=== PATIENT | female | born 1975 | race Caucasian/White ===

== ENCOUNTER 2020-05-05 19:24 | Inpatient (IN) | payer OTHER ==
[~2020-05-05] VITALS: Ht 165.1 cm; Wt 113.3 kg
[2020-05-05] MEDS ORDERED: TERBINAFINE15 GM (20:21)
[2020-05-05 21:54] LABS: BASOPHILS ABSOLUTE AUTO 0.03 K/mm3 (0.00-0.23); BASOPHILS PERCENT AUTO 0 % (0-2); EOSINOPHILS ABSOLUTE AUTO 0.16 K/mm3 (0.00-0.68); EOSINOPHILS PERCENT AUTO 2 % (0-6); Hematocrit 34.1 % (33.0-51.0); Hemoglobin 10.8 g/dL (11.5-16.0); IMMATURE GRAN ABSOLUTE AUTO 0.03 K/mm3 (0.00-0.10); IMMATURE GRAN PERCENT AUTO 0 % (0-1); LYMPHOCYTES ABSOLUTE AUTO 1.89 K/mm3 (0.84-5.20); LYMPHOCYTES PERCENT AUTO 18 % (21-46); MONOCYTES ABSOLUTE AUTO 0.41 K/mm3 (0.16-1.47); MONOCYTES PERCENT AUTO 4 % (4-13); Mean Corpuscular HGB 26.7 pg (26.0-34.0); Mean Corpuscular HGB Conc 31.7 g/dL (31.5-36.5); Mean Corpuscular Volume 84 fL (80-100); NEUTROPHILS ABSOLUTE AUTO 7.86 K/mm3 (1.96-9.15); NEUTROPHILS PERCENT AUTO 76 % (41-73); Platelet Count 101 K/mm3 (150-400); RDW Coefficient Variation 15.5 % (11.7-14.2); RDW Standard Deviation 47.6 fL (35.1-46.3); Red Blood Cell Count 4.04 M/mm3 (3.80-5.20); White Blood Cell Count 10.38 K/mm3 (4.00-11.30)
[2020-05-05 22:09] LABS: International Normalized Ratio 1.12; Prothrombin Time Results 11.9 Sec (9.7-11.5)
[2020-05-06 00:03] LABS: Source, Urine Catheter
[2020-05-06 00:11] LABS: Appearance, Urine Clear (Clear); Bilirubin, Urine Neg (Neg); Blood, Urine 5+ (Neg); Color, Urine Amber (P-Yellow); Glucose Qualitative, Urine Neg (Neg); Ketones, Urine 1+ (Neg); Leukocyte Esterase, Urine Neg (Neg); Nitrite, Urine Neg (Neg); Protein, Urine 2+ (Neg); Urobilinogen, Urine NORM (Normal)
[2020-05-06 00:17] LABS: Bacteria Mod /hpf; Mucus Mod (0-Heavy); Red Blood Cells, Urine 50-100 /hpf (0-2); Squamous Epithelial Cells Few /hpf (Few)
[2020-05-06 04:44] LABS: BASOPHILS ABSOLUTE AUTO 0.02 K/mm3 (0.00-0.23); BASOPHILS PERCENT AUTO 0 % (0-2); EOSINOPHILS ABSOLUTE AUTO 0.16 K/mm3 (0.00-0.68); EOSINOPHILS PERCENT AUTO 2 % (0-6); Hematocrit 32.2 % (33.0-51.0); Hemoglobin 10.1 g/dL (11.5-16.0); IMMATURE GRAN ABSOLUTE AUTO 0.02 K/mm3 (0.00-0.10); IMMATURE GRAN PERCENT AUTO 0 % (0-1); LYMPHOCYTES ABSOLUTE AUTO 1.23 K/mm3 (0.84-5.20); LYMPHOCYTES PERCENT AUTO 19 % (21-46); MONOCYTES ABSOLUTE AUTO 0.35 K/mm3 (0.16-1.47); MONOCYTES PERCENT AUTO 5 % (4-13); Mean Corpuscular HGB 26.4 pg (26.0-34.0); Mean Corpuscular HGB Conc 31.4 g/dL (31.5-36.5); Mean Corpuscular Volume 84 fL (80-100); Mean Platelet Volume 9.7 fL (9.1-12.4); NEUTROPHILS ABSOLUTE AUTO 4.83 K/mm3 (1.96-9.15); NEUTROPHILS PERCENT AUTO 73 % (41-73); Platelet Count 75 K/mm3 (150-400); RDW Coefficient Variation 15.5 % (11.7-14.2); RDW Standard Deviation 47.8 fL (35.1-46.3); Red Blood Cell Count 3.82 M/mm3 (3.80-5.20); White Blood Cell Count 6.61 K/mm3 (4.00-11.30)
[2020-05-06 05:00] LABS: Anion Gap 7 mmol/L (6-16); Blood Urea Nitrogen 15 mg/dL (8-24); Bun/Creatinine Ratio 22.5 (12.0-20.0); CO2, Blood 25 mmol/L (21-32); Calcium, Blood 8.4 mg/dL (8.5-10.1); Chloride, Blood 109 mmol/L (98-108); Creatinine, Blood 0.67 mg/dL (0.40-1.00); Glomerular Filtration Rate >60 (60-); Glucose, Blood 175 mg/dL (70-99); Potassium, Blood 3.5 mmol/L (3.5-5.5); Sodium, Blood 141 mmol/L (136-145)
--- NOTE | 2020-05-06 15:27 | NUR ---
TRANSFER OF CARE REPORT CALLED TO SURGICAL FLOOR RN. PT TRANSFERRED TO ROOM 209. BELONGINGS GATHERED AND SENT WITH PT. PT WAS TAKEN BY WHEELCHAIR ESCORTED BY PCT.
[2020-05-07 04:20] LABS: BASOPHILS ABSOLUTE AUTO 0.02 K/mm3 (0.00-0.23); BASOPHILS PERCENT AUTO 0 % (0-2); EOSINOPHILS ABSOLUTE AUTO 0.16 K/mm3 (0.00-0.68); EOSINOPHILS PERCENT AUTO 3 % (0-6); Hematocrit 31.6 % (33.0-51.0); Hemoglobin 9.9 g/dL (11.5-16.0); IMMATURE GRAN ABSOLUTE AUTO 0.03 K/mm3 (0.00-0.10); IMMATURE GRAN PERCENT AUTO 1 % (0-1); LYMPHOCYTES ABSOLUTE AUTO 1.04 K/mm3 (0.84-5.20); LYMPHOCYTES PERCENT AUTO 18 % (21-46); MONOCYTES ABSOLUTE AUTO 0.32 K/mm3 (0.16-1.47); MONOCYTES PERCENT AUTO 5 % (4-13); Mean Corpuscular HGB 26.7 pg (26.0-34.0); Mean Corpuscular HGB Conc 31.3 g/dL (31.5-36.5); Mean Corpuscular Volume 85 fL (80-100); Mean Platelet Volume 10.2 fL (9.1-12.4); NEUTROPHILS ABSOLUTE AUTO 4.31 K/mm3 (1.96-9.15); NEUTROPHILS PERCENT AUTO 73 % (41-73); Platelet Count 73 K/mm3 (150-400); RDW Coefficient Variation 15.5 % (11.7-14.2); RDW Standard Deviation 48.2 fL (35.1-46.3); Red Blood Cell Count 3.71 M/mm3 (3.80-5.20); White Blood Cell Count 5.88 K/mm3 (4.00-11.30)
[2020-05-07 04:43] LABS: Alanine Aminotransfer (ALT/SGP 39 U/L (12-78); Albumin, Blood 3.1 g/dL (3.4-5.0); Alk Phos 57 U/L (50-136); Anion Gap 6 mmol/L (6-16); Aspartate Aminotrans (AST/SGOT 23 U/L (12-37); Bilirubin, Total 1.8 mg/dL (0.1-1.0); Blood Urea Nitrogen 12 mg/dL (8-24); Bun/Creatinine Ratio 16.3 (12.0-20.0); CO2, Blood 27 mmol/L (21-32); Calcium, Blood 8.5 mg/dL (8.5-10.1); Chloride, Blood 106 mmol/L (98-108); Creatinine, Blood 0.74 mg/dL (0.40-1.00); Globulin, Blood 3.1 g/dL (2.2-4.0); Glomerular Filtration Rate >60 (60-); Glucose, Blood 150 mg/dL (70-99); Potassium, Blood 3.6 mmol/L (3.5-5.5); Sodium, Blood 139 mmol/L (136-145); Total Protein, Blood 6.2 g/dL (6.4-8.2)
--- NOTE | 2020-05-07 04:59 | NUR ---
SHIFT SUMMARY: PT A&O X4. FEBRILE IN BEGINNING OF SHIFT. REPORTS BODY ACHES. DENIES CHILLS. PT C/O MIDLINE ABD PAIN AND DESCRIBES IT DULL AND CONSTANT. ALSO C/O HEADACHE THAT HAS NOT RESOLVED WITH TORADOL OR TYLENOL. PT GIVEN ICE PACK FOR COMFORT. REPORTS ABD PAIN HAS BEEN TOLERABLE AND HAS NOT REQUIRED IV PAIN MEDICATION. BRIANA SMALL AMOUNTS OF PO. VOIDING WELL. INDEPENDENT IN ROOM. IVF AND ABX INFUSING PER EMAR. PT APPEARS TO BE RESTING MOST OF SHIFT.
--- NOTE | 2020-05-07 09:06 | NUR ---
DENIES ANY NAUSEA, AMBULATING TO THE BATHROOM, REPORTS PASSING FLATUS, C/O BACK PAIN, ABD PAIN AND H/A, MEDICATED WITH 1 OXYCODONE, CONT. TO MONITOR FOR ANY CHANGES.
[2020-05-07 17:22] LABS: Source, Urine Voided
[2020-05-07 17:37] LABS: Appearance, Urine Turbid (Clear); Bilirubin, Urine Neg (Neg); Blood, Urine 5+ (Neg); Glucose Qualitative, Urine 3+ (Neg); Ketones, Urine 3+ (Neg); Leukocyte Esterase, Urine 1+ (Neg); Nitrite, Urine Neg (Neg); Protein, Urine 2+ (Neg); Urobilinogen, Urine 1+ (Normal)
--- NOTE | 2020-05-07 17:48 | NUR ---
SUMMARY REPORTS ABD PAIN IS "BETTER" DENIES ANY NAUSEA, REPORTS PASSING FLATUS TODAY, TOLERATING CLEAR LIQUIDS WELL, HAD T101.6 TODAY, CURRENTLY 100.9, UA SENT, DENIES ANY SOB, DR. URIOSTEGUI SAW PT TODAY, NO SURGERY PLANNED, STATES TO CONT. IV ABX AND F/U WITH HIM OUTPATIENT.
[2020-05-07 17:54] LABS: Color, Urine Orange (P-Yellow)
[2020-05-07 17:57] LABS: Red Blood Cells, Urine TNTC /hpf (0-2); Squamous Epithelial Cells Few /hpf (Few)
[2020-05-07 17:58] LABS: Bacteria Many /hpf
[2020-05-08 05:07] LABS: BASOPHILS ABSOLUTE AUTO 0.02 K/mm3 (0.00-0.23); BASOPHILS PERCENT AUTO 1 % (0-2); EOSINOPHILS PERCENT AUTO 3 % (0-6); Hematocrit 29.1 % (33.0-51.0); Hemoglobin 9.3 g/dL (11.5-16.0); IMMATURE GRAN ABSOLUTE AUTO 0.03 K/mm3 (0.00-0.10); IMMATURE GRAN PERCENT AUTO 1 % (0-1); LYMPHOCYTES ABSOLUTE AUTO 0.75 K/mm3 (0.84-5.20); LYMPHOCYTES PERCENT AUTO 20 % (21-46); MONOCYTES ABSOLUTE AUTO 0.32 K/mm3 (0.16-1.47); MONOCYTES PERCENT AUTO 8 % (4-13); Mean Corpuscular HGB 26.8 pg (26.0-34.0); Mean Corpuscular Volume 84 fL (80-100); Mean Platelet Volume 9.7 fL (9.1-12.4); NEUTROPHILS ABSOLUTE AUTO 2.62 K/mm3 (1.96-9.15); NEUTROPHILS PERCENT AUTO 68 % (41-73); Platelet Count 70 K/mm3 (150-400); RDW Coefficient Variation 15.3 % (11.7-14.2); RDW Standard Deviation 46.7 fL (35.1-46.3); Red Blood Cell Count 3.47 M/mm3 (3.80-5.20); White Blood Cell Count 3.84 K/mm3 (4.00-11.30)
[2020-05-08 05:32] LABS: Anion Gap 7 mmol/L (6-16); Blood Urea Nitrogen 11 mg/dL (8-24); Bun/Creatinine Ratio 16.6 (12.0-20.0); CO2, Blood 26 mmol/L (21-32); Calcium, Blood 8.3 mg/dL (8.5-10.1); Chloride, Blood 105 mmol/L (98-108); Creatinine, Blood 0.66 mg/dL (0.40-1.00); Glomerular Filtration Rate >60 (60-); Glucose, Blood 163 mg/dL (70-99); Potassium, Blood 3.1 mmol/L (3.5-5.5); Sodium, Blood 138 mmol/L (136-145)
--- NOTE | 2020-05-08 06:23 | NUR ---
PT T-MAX 102.0, OTHER VSS. SATS 90% ON RA, 2LO2 PLACED WHILE SLEEPING. PT CONT TO C/O HEADACHE, REP IMPROVED AFTER O2 PLACED. PAIN AND FEVER MGD PER EMAR W/NOTED IMPROVEMENTS. ABD SOFT, REMAINS PAINFUL IN LUQ, PT BRIANA CL PO, NO N/V, PT REP +FLATUS. PT URINE REMINGTON/CLOUDY, PT DENIES PAIN W/VOID. PT UP INDEP IN ROOM, DENIES DIZZINESS WHEN UP. IVF AND ABX CONT PER ORDERS.
--- NOTE | 2020-05-08 13:05 | NUR ---
PT WITH TEMP 103.6, TORADOL GIVEN, DR. MARROQUIN NOTIFIED, BP 159/76, RESP 20, HR 116, REPORTS ABD PAIN IS "OK FOR NOW" BUT REPORTS HAVING A H/A, COOL WASHCLOTHS APPLIED TO FOREHEAD, RECEIVED ORDER TO SWAB PT FOR COVID TESTING.
--- NOTE | 2020-05-08 13:43 | NUR ---
SPOKE TO DR. MARROQUIN REGARDING PT'S REPEAT CT ABD RESULTS, REQUESTED TO HAVE DR. URIOSTEGUI SEE PT AGAIN, DR. URIOSTEGUI'S OFFICE NOTIFIED.
[2020-05-08 14:38] LABS: Influenza A, PCR Negative (NEGATIVE); Influenza B, PCR Negative (NEGATIVE); Resp Syncytial Virus, PCR Negative (NEGATIVE); SARS-Cov-2 (COVID-19) PCR, MMC Negative (NEGATIVE)
--- NOTE | 2020-05-08 15:59 | NUR ---
PT TAKEN TO DAY SURGERY.
--- NOTE | 2020-05-08 16:11 | NUR ---
REPORT GIVEN TO DOTTIE VENCES
--- NOTE | 2020-05-08 22:58 | NUR ---
ARRIVAL TO UNIT, PT ARRIVED TO UNIT AT APPROX 2100. ARRIVED ON 6L VIA OXYMIZER AND REPORTING PAIN OF 8/10. PT HOOKED TO CONTINOUS BIOX, SATS AT 94%. FENTANYL CUTTING AND BONING SUPERVISOR SET UP PER EMAR. PATIENT WAKES UP AND IS ABLE TO PUSH BUTTON WHEN SHE NEEDS IT. DENIES ANY SHORTNESS OF BREATH AND LOCALIZES PAIN TO HER MID ABDOMEN. PICCO DRESSING CDI GREEN LIGHT ON, STOMA PINK AND BEEFY WITH SMALL AMOUNT RED LIQUID IN BAG. PT CURRENTLY RESTING IN BED WITH A FAN ON AND A COOL WASHCLOTH, DENIES FURTHER NEEDS AT THIS TIME.
[2020-05-09 05:33] LABS: Anion Gap 5 mmol/L (6-16); Blood Urea Nitrogen 10 mg/dL (8-24); Bun/Creatinine Ratio 18.2 (12.0-20.0); CO2, Blood 28 mmol/L (21-32); Chloride, Blood 105 mmol/L (98-108); Creatinine, Blood 0.55 mg/dL (0.40-1.00); Glomerular Filtration Rate >60 (60-); Glucose, Blood 194 mg/dL (70-99); Potassium, Blood 3.8 mmol/L (3.5-5.5); Sodium, Blood 138 mmol/L (136-145)
--- NOTE | 2020-05-09 06:25 | NUR ---
SHIFT SUMMARY POD 1 SIGMOID COLECTOMY PT AA0X4, PT REPORTS PAIN STILL 7/10 BUT IS BETTER AND LOCALIZED ONLY TO ABDOMEN. SHE IS MUCH MORE ALERT AND SITS UP. TOLERATES ICE CHIPS AND SIPS WELL. FARM OPERATIONS MANAGER INFUSING DURING SHIFT, SUPPLEMENTED WITH TYLENOL AND TORODOL. FEVER DOWN DURING SHIFT. PT REPORTS THINGS "FEELING STRANGE." "IF I CLOSE MY EYES IT FEELS LIKE I CAN IMAGINE THE TABLE BUBBLING." DENIES SEEING OR HEARING ANYTHING OTHER THAN THAT. STOMA PINK AND MOIST. SMALL SANGUINOUS LIQUID IN BAG. PICCO CDI WITH GREEN LIGHT ON. PT AT 92% 6L OXYMIZER, DENIES SOB. ABLE TO SIT SELF UP IN BED. PLAN TO CONTINUE WITH PAIN MANAGEMENT. AND OBSERVE OSTOMY.
[2020-05-09 08:07] LABS: BASOPHILS ABSOLUTE AUTO 0.02 K/mm3 (0.00-0.23); BASOPHILS PERCENT AUTO 0 % (0-2); EOSINOPHILS ABSOLUTE AUTO 0.01 K/mm3 (0.00-0.68); EOSINOPHILS PERCENT AUTO 0 % (0-6); Hematocrit 30.6 % (33.0-51.0); Hemoglobin 9.8 g/dL (11.5-16.0); IMMATURE GRAN ABSOLUTE AUTO 0.04 K/mm3 (0.00-0.10); IMMATURE GRAN PERCENT AUTO 1 % (0-1); LYMPHOCYTES ABSOLUTE AUTO 0.85 K/mm3 (0.84-5.20); LYMPHOCYTES PERCENT AUTO 13 % (21-46); MONOCYTES ABSOLUTE AUTO 0.41 K/mm3 (0.16-1.47); MONOCYTES PERCENT AUTO 6 % (4-13); Mean Corpuscular HGB 26.6 pg (26.0-34.0); Mean Corpuscular Volume 83 fL (80-100); Mean Platelet Volume 10.1 fL (9.1-12.4); NEUTROPHILS ABSOLUTE AUTO 5.46 K/mm3 (1.96-9.15); NEUTROPHILS PERCENT AUTO 81 % (41-73); Platelet Count 107 K/mm3 (150-400); RDW Coefficient Variation 15.4 % (11.7-14.2); RDW Standard Deviation 46.6 fL (35.1-46.3); Red Blood Cell Count 3.68 M/mm3 (3.80-5.20); White Blood Cell Count 6.79 K/mm3 (4.00-11.30)
--- NOTE | 2020-05-09 16:17 | NUR ---
PT REMAINS SITTING IN CHAIR, SMILING AND TESTING ON PHONE AND REPORTS PAIN IS ADEQUATELY CONTROLLED. DISCUSSED OSTOMY EDUCATION WITH PATIENT AND PATIENT WISHES TO WAIT UNTIL HER DAUGHTER IS HERE TO START TEACHING. PT EAGER TO LEARN ABOUT OSTOMY CARE
--- NOTE | 2020-05-09 18:26 | NUR ---
PTS DAUGHTER HERE TO VISIT. SHOWED PT AND HER DAUGHTER OSTOMY APPLIANCE AND BRIEFLY DISCUSSSED HOW A 2 PART SYSTEM ADHERES TO SKIN, SKIN PREP AND DISCUSSED HOW TO EMPTY OSTOMY APPLIANCE AND HOW TO RINSE OSTOMY BAG WITH JESUS BOTTLE. PT AND HER DAUGHTER EAGER TO LEARN OSTOMY CARE AND ASKING QUESTIONS. PT REPORTS PAIN IS ADEQUATELY CONTROLLED AT 4-5/10. PT ON OXYGEN AT 3 LITERS NC AND SATS 94-96% THROUGHOUT SHIFT. PT USING IS INDEPENDENTLY
--- NOTE | 2020-05-10 06:14 | NUR ---
SHIFT SUMMARY: BETSEY IS A&OX4. VSS, NO ACUTE EVENTS OVERNIGHT. SHE REPORTS ADEQUATE PAIN CONTROL WITH THE FENTANYL JEWEL STRINGER, APAP AND TORADOL. SHE IS A STANDBY ASSIST FOR TRANSFERS FOR CORDS/LINES. SHE IS TOLERATING SIPS/CHIPS. FLUIDS INFUSING TO THE CENTRAL LINE. CUCO INTACT TO MIDLINE. OSTOMY INTACT. SHE IS ABLE TO MAKE HER NEEDS KNOWN. FELIX PATENT. SHE IS LYING IN BED WITH HER CALL LIGHT IN REACH. WILL REPORT TO DAY SHIFT RN.
--- NOTE | 2020-05-10 10:00 | NUR ---
DR MARROQUIN HERE TO SEE PT, REPORTS TO BLADDER-TRAIN PT BEFORE DC'ING FELIX. FELIX CLAMPED, DISCUSSED WITH FEMALE FINANCIAL INVESTMENT MANAGER.
--- NOTE | 2020-05-10 12:46 | NUR ---
FELIX RECENTLY UNCLAMPED FOR BLADDER TRAINING.
--- NOTE | 2020-05-10 13:20 | NUR ---
FELIX CLAMPED FOR BLADDER TRAINING.
--- NOTE | 2020-05-10 16:05 | NUR ---
PT REPORTS FEELING OF HAVING TO VOID, FELIX UNCLAMPED. DISCUSSED FEILX BEING DC'D WITH PT AND FEMALE GAS STATION SERVICE ATTENDANT.
--- NOTE | 2020-05-10 16:48 | NUR ---
SHIFT SUMMARY PT BEEN ASSISTED WITH ADL'S PRN. PT CONT TO TOLERATE SIPS AND CHIPS. PT HAS BEEN HAVING BLADDER TRAINING TODAY WITH PLAN TO D/C FELIX THIS AFTERNOON PER DR MARROQUIN. PT HAD FAMILY IN TO SEE PT TODAY. PT USING PRECISION DEVICES INSPECTOR/TESTER FOR PAIN. PT ON ROOM AIR ABOVE 92%, CONT BIOX IN PLACE. PT USING CALL LIGHT APPR.
--- NOTE | 2020-05-10 17:15 | NUR ---
ELVIRA REPORTED TO BE DC'D BY FEMALE REJECTED ITEMS CLERK.
--- NOTE | 2020-05-10 22:36 | NUR ---
PATIENT IS ABLE TO ASSIST WITH GETTING OOB. WALKS WITH MINIMAL ASSISTANCE, REQUIRES TWO PEOPLE TO ASSIST TO BR WITH 2 IV POLES. SHE IS TAKING ICE CHIPS, EDUCATED ON QUANTIY OF ICE AND LACK OF ACTIVE BOWEL TONES. DENIES NAUSEA. SEWER PIPE PRESS OPERATOR IS KEEPING PAIN BELOW 7/10 AND IS STATED TO BE MANAGED BY PATIENT. CALL LIGHT, SEWER PIPE PRESS OPERATOR BUTTON AND PHONE ARE WITHIN REACH.
[2020-05-11 05:10] LABS: BASOPHILS ABSOLUTE AUTO 0.03 K/mm3 (0.00-0.23); BASOPHILS PERCENT AUTO 1 % (0-2); EOSINOPHILS ABSOLUTE AUTO 0.11 K/mm3 (0.00-0.68); EOSINOPHILS PERCENT AUTO 2 % (0-6); Hematocrit 28.8 % (33.0-51.0); Hemoglobin 9.1 g/dL (11.5-16.0); Mean Corpuscular HGB 26.6 pg (26.0-34.0); Mean Corpuscular HGB Conc 31.6 g/dL (31.5-36.5); Mean Corpuscular Volume 84 fL (80-100); Mean Platelet Volume 9.5 fL (9.1-12.4); Platelet Count 126 K/mm3 (150-400); RDW Coefficient Variation 15.6 % (11.7-14.2); RDW Standard Deviation 47.8 fL (35.1-46.3); Red Blood Cell Count 3.42 M/mm3 (3.80-5.20)
[2020-05-11 05:11] LABS: IMMATURE GRAN ABSOLUTE AUTO 0.11 K/mm3 (0.00-0.10); IMMATURE GRAN PERCENT AUTO 2 % (0-1); LYMPHOCYTES ABSOLUTE AUTO 1.56 K/mm3 (0.84-5.20); LYMPHOCYTES PERCENT AUTO 31 % (21-46); MONOCYTES ABSOLUTE AUTO 0.28 K/mm3 (0.16-1.47); MONOCYTES PERCENT AUTO 6 % (4-13); NEUTROPHILS ABSOLUTE AUTO 2.91 K/mm3 (1.96-9.15); NEUTROPHILS PERCENT AUTO 58 % (41-73)
[2020-05-11 05:28] LABS: Anion Gap 5 mmol/L (6-16); Blood Urea Nitrogen 8 mg/dL (8-24); CO2, Blood 30 mmol/L (21-32); Calcium, Blood 8.4 mg/dL (8.5-10.1); Chloride, Blood 107 mmol/L (98-108); Creatinine, Blood 0.67 mg/dL (0.40-1.00); Glomerular Filtration Rate >60 (60-); Glucose, Blood 109 mg/dL (70-99); Potassium, Blood 3.3 mmol/L (3.5-5.5); Sodium, Blood 142 mmol/L (136-145)
--- NOTE | 2020-05-11 05:50 | NUR ---
PATIENT IS ABLE TO GET OOB COMPLETELY BY HERSELF. CONTINUES TO NEED HELP WITH IV POLES AND CENTRAL LINE PROTECTION. AM LABS DRAWN FROM CENTRAL LINE, CAPS CHANGED. PATIENT IS AMBULATING WELL WITH LESS PAIN. SCD'S HAVE BEEN ON AND OFF T/O NIGHT AND CURRENTLY OFF PER PATIENT REQUEST. TOLERATING SIPS AND ICE CHIPS, DENIES NAUSEA. CALL LIGHT IN REACH.
--- NOTE | 2020-05-11 09:06 | NUR ---
DR MARROQUIN HERE TO SEE PT, DISCUSSED PT HAVING SWELLING TO ARMS. REPORTS TO DECREASE IVF.
--- NOTE | 2020-05-11 13:29 | NUR ---
DR BUCK HERE TO SEE PT.
--- NOTE | 2020-05-11 15:03 | NUR ---
DIET CLARIFIED WITH DR BUCK, REPORTS MAY HAVE TRAY. NEW ORDER UPDATED.
--- NOTE | 2020-05-11 15:35 | NUR ---
SHIFT SUMMARY PT TOLERATING SIPS AND CHIPS. PT BEEN VOIDING. PT HAVING SMALL AMT OF FLATUS OUT OF OSTOMY. PT BEEN UP AND AMBULATED IN HALLWAY EARLIER WITH ASSIST. PT USING CALL LIGHT APPR. PT BEING ADVANCED TO F.L. DIET FOR DINNER. PT BEEN GIVEN PUDDING SNACK. PT HAS IVF AND GRADES 1 THRU [address]
--- NOTE | 2020-05-11 15:40 | NUR ---
OTHER VANGIE Robbins GIVEN REPORT AND IS ASSUMING CARE OF PT.
--- NOTE | 2020-05-11 15:53 | NUR ---
ASSUMED CARE OF PATIENT AT 1553. PT APPEARS TO BE RESTING COMFORTABLE IN ROOM AT THIS TIME.
--- NOTE | 2020-05-12 05:31 | NUR ---
SHIFT SUMMARY POD#4. AAOX4. DISCOMFORT CONTROLLED WITH FENTANYL COMPUTER SYSTEMS SOFTWARE ENGINEER. NO NAUSEA/EMESIS. ABD INCISION WITH DRESSING C/D/I. OSTOMY SECURE WITH MODERATE AMOUNT OF FLATUS THIS SHIFT, SCANT AMOUNT SS DRAINAGE. IVF + ABX PER ORDERS. INDEPENDENT IN ROOM + RESTED WELL THIS NOC SHIFT IN CHAIR. GOOD PO INTAKE + URINE OUTPUT. CONTINUE TO ENCOURAGE AMBULATION TODAY. PT CURRENTLY RESTING WITH CALL LIGHT IN REACH.
--- NOTE | 2020-05-12 11:23 | NUR ---
DC PLANNING DISCUSSED W/DC RESEARCH CENTER DIRECTOR PT HAS NEW OSTOMY/NEEDS SUPPLIES.
--- NOTE | 2020-05-12 14:28 | NUR ---
Vernn up in chair resting starting to belch more and she started to pass rashawn. She states she had a terrible headache when she came in it has now resolved. Her main complaint is pain and tightness to her surgical site. and grief over getting an ostomy she is still processing what happened. She would like get some information on support groups and more technician terminal and repeater information. During our conversation she became distrught and started releasing some stress about being s . theraputic conversation and careful listening. offered differt levels of suuport she wants online information. will get her appopriate referals.
--- NOTE | 2020-05-12 15:20 | NUR ---
REPORT GIVEN TO PAZ Akers RN.
--- NOTE | 2020-05-12 19:10 | NUR ---
ASSUMED CARE OF PT THIS AFTERNOON, DENIES ANY DISCOMFORT, REPORTS PAIN IS TOLERABLE, OSTOMY APPLIANCE INTACT, REPORTS HAVING GAS IN BAG, PT TO START REGULAR DIET TOMORROW PER DR. BUCK, NO ACUTE CHANGES THIS SHIFT.
--- NOTE | 2020-05-13 05:20 | NUR ---
SHIFT SUMMARY SIGMOID COLECTOMY POD5, A/O X4, VSS, TOLERATING PO, PASSING FLATUS, INDEPENDENT IN ROOM, VOIDING WELL, PAIN WELL CONTROLLED, DIE CUT OPERATOR DC'D AND DOING WELL ON ORALS. UP TO CHAIR T/O SHIFT. CALL LIGHT IN REACH, WILL CONTINUE TO MONITOR AND REPORT TO ONCOMING DAY RN.
--- NOTE | 2020-05-13 12:16 | NUR ---
PT WATCHING OSTOMY VIDEOS, HAS BEEN "BURPING" AND EMPTYING OSTOMY BAG SHOWN, AMBULATED DOWN THE LAMB THIS AM, REPORTS PAIN IS TOLERABLE WITH NORCO AND TOLERATED REGUALR DIET WELL THIS AM.
--- NOTE | 2020-05-13 18:17 | NUR ---
Review of online support groups and resources with patient and supportive visit. Sffect brighter pt hopes to go home.
--- NOTE | 2020-05-14 05:27 | NUR ---
SHIFT SUMMARY: CARE RESUMED BY THIS RN AT APPROX 2330. PT S/P SIGMOID COLECTOMY. PT MANAGING OSTOMY BAG INDEPENDENTLY. PAIN WELL CONTROLLED THIS SHIFT. MEDICATED ONCE WITH NORCO PER EMAR. PT BRIANA PO. DENIES N/V. VOIDING WELL. ABX INFUSING PER ORDERS. PLAN FOR POSSIBLE DISCHARGE TODAY.
[2020-05-14] MEDS ORDERED: DOCU100 PO (11:47)
[2020-05-14] MEDS ORDERED: HYDR1TAB94 PO (11:47)
[2020-05-14] MEDS ORDERED: MIRALAX17 GM PO (11:48)
[2020-05-14] MEDS ORDERED: SENN187 PO (11:48)
[2020-05-14] MEDS ORDERED: ACIDOPHILUS1 EAC3 PO (11:50)
[2020-05-14] MEDS ORDERED: AMOCLA875 PO (11:51)
--- NOTE | 2020-05-14 16:19 | NUR ---
DISCHARGE NOTE: PATIENT WAS EDUCATED ON DISCHARGE INSTRUCTIONS. SHE VERBALIZED UNDERSTANDING. SHE IS ALERT AND ORIENTED X4. VITALS ARE WNL AND IS ON RA. PAIN IS CONTROLLED WITH 2 NORCOS. SHE HAS HARD PERSCRIPTIONS FOR THE NORCOS. SHE HAS GATHERED HER ITEMS TOGETHER AND WILL BE LEAVING SHORTLY. SHE REPORTS "BEING TREATED WONDERFULLY". SHE WAS A PLEASURE TO WORK WITH. SHE WILL BE WALKING OUT AND HER SON WILL BE DRIVING HER HOME. MEDICAL CLERICAL ASSISTANT GOT HER OSTOMY SUPPLIES SET UP TO BE SENT HOME TO HER.
== END 2020-05-14 16:27 | disposition home or self-care (01) | DRG 853 ==
LOC: ER 19:24 → PCU 21:38 → SURS 21:38 → PCU 22:01 → SURS 05-06 16:18
PROVIDERS: Internal Medicine; Surgery; ADMIT Internal Medicine
PROC: 0DTN0ZZ Resection of Sigmoid Colon, Open Approach (ICD-10-PCS; principal; 2020-05-08 13:45)
PROC: 0D1N0Z4 Bypass Sigmoid Colon to Cutaneous, Open Approach (ICD-10-PCS; 2020-05-08 13:45)
DX: A41.9 Sepsis, unspecified organism (principal); J96.01 Acute respiratory failure with hypoxia; K65.9 Peritonitis, unspecified; D61.818 Other pancytopenia; Z68.41 Body mass index [BMI] 40.0-44.9, adult; K57.20 Diverticulitis of large intestine with perforation and abscess without bleeding; E66.01 Morbid (severe) obesity due to excess calories; L40.9 Psoriasis, unspecified; Z20.828 Contact with and (suspected) exposure to other viral communicable diseases; Z87.891 Personal history of nicotine dependence
CPT/HCPCS: 0241U; 36415; 71045; 74176; 74177; 80048; 80053; 81001; 81025; 83605; 83735; 85025; 85610; 85730; 87040; 87086; 88307; 94762; 96374; 96375; 99285-25; A9270; A9270-GY; C1751; G0008; J0295; J1100; J1170; J1650; J1885; J2405; J2543; J2704; J2710; J3010; J3480; J7030; J7050; J7120; Q2038; Q9967

== ENCOUNTER → 2020-05-05 | Outpatient (CLI) | payer OTHER ==
[~2020-05-05] MED LIST: ACIDOPHILUS1 EAC3 PO; AMOCLA875 PO; DOCU100 PO; HYDR1TAB94 PO; IBUP200 PO; MIRALAX17 GM PO; Percocet 5-3251 EACH PO; SENN187 PO; TERBINAFINE15 GM; TRIDERM28.4 GM TOP; ZYRTEC10 M2 PO
[2020-05-05 18:46] LABS: BASOPHILS ABSOLUTE AUTO 0.03 K/mm3 (0.00-0.23); BASOPHILS PERCENT AUTO 0 % (0-2); EOSINOPHILS ABSOLUTE AUTO 0.12 K/mm3 (0.00-0.68); EOSINOPHILS PERCENT AUTO 1 % (0-6); Hematocrit 34.5 % (33.0-51.0); Hemoglobin 11.4 g/dL (11.5-16.0); IMMATURE GRAN ABSOLUTE AUTO 0.04 K/mm3 (0.00-0.10); IMMATURE GRAN PERCENT AUTO 0 % (0-1); LYMPHOCYTES ABSOLUTE AUTO 1.17 K/mm3 (0.84-5.20); LYMPHOCYTES PERCENT AUTO 12 % (21-46); MONOCYTES ABSOLUTE AUTO 0.37 K/mm3 (0.16-1.47); MONOCYTES PERCENT AUTO 4 % (4-13); Mean Corpuscular Volume 82 fL (80-100); NEUTROPHILS ABSOLUTE AUTO 7.67 K/mm3 (1.96-9.15); NEUTROPHILS PERCENT AUTO 82 % (41-73); RDW Coefficient Variation 15.6 % (11.7-14.2); RDW Standard Deviation 45.7 fL (35.1-46.3); Red Blood Cell Count 4.22 M/mm3 (3.80-5.20)
[2020-05-05 18:52] LABS: Alanine Aminotransfer (ALT/SGP 66 U/L (12-78); Albumin, Blood 4.1 g/dL (3.4-5.0); Albumin/Globulin Ratio 1.5 (0.8-1.8); Alk Phos 59 U/L (40-126); Anion Gap 11 mmol/L (6-16); Aspartate Aminotrans (AST/SGOT 37 U/L (12-37); Bilirubin, Total 1.1 mg/dL (0.1-1.0); Blood Urea Nitrogen 16 mg/dL (8-24); Bun/Creatinine Ratio 21.1 (12.0-20.0); CO2, Blood 25 mmol/L (21-32); Calcium, Blood 8.8 mg/dL (8.5-10.1); Chloride, Blood 103 mmol/L (98-108); Creatinine, Blood 0.76 mg/dL (0.40-1.00); Globulin, Blood 2.7 g/dL (2.2-4.0); Glomerular Filtration Rate >60 (60-); Glucose, Blood 134 mg/dL (70-99); Potassium, Blood 3.8 mmol/L (3.5-5.5); Sodium, Blood 139 mmol/L (136-145); Total Protein, Blood 6.8 g/dL (6.4-8.2)
[2020-05-05 18:54] LABS: Mean Platelet Volume 10.7 fL (9.1-12.4)
[2020-05-05 19:17] LABS: Platelet Count 105 K/mm3 (150-400)
== END | disposition home or self-care (01) ==
LOC: LAB EV 18:33
PROVIDERS: Physician Assistant Medical
DX: R10.84 Generalized abdominal pain (principal)
CPT/HCPCS: 80053; 83690; 85025

== ENCOUNTER 2020-12-04 11:09 | Day surgery (SDC) | payer OTHER ==
[~2020-12-04] VITALS: Ht 165.1 cm; Wt 107.1 kg
[~2020-12-04 11:09] MED LIST changes: -Percocet 5-3251 EACH PO
--- NOTE | 2020-12-04 12:26 | NUR ---
12/04/20 1226 Edd Licona History, Chart, Medications and Allergies reviewed before start of procedure. MONITOR INTACT WITH CONTINUOUS PULSE OXIMETRY AND INTERMITTENT BP. EKG MONITORED DURING PROCEDURE. O2 VIA N/C INTACT THROUGHOUT SEDATION/PROCEDURE. See Anesthesia record/DR OLIVA. IV INFILTRATED DURING PROCEDURE, NEW IV PLACED.
--- NOTE | 2020-12-04 13:20 | NUR ---
Discharge instructions reviewed with patient. Patient verbalizes understanding. Copy given to patient to take home. Patient States Post-Procedure ride home has been arranged. Discharged via wheelchair to private car for ride home. PT TO HAVE CLEAR LIQUIDS ONLY THEN NPO AT MIDNIGHT FOR SURGERY IN AM
--- NOTE | 2020-12-04 13:31 | NUR ---
PT IV WRAPPED AND SALINE LOCKED PER DR BUCK ORDERS PT IS A HARD IV START AND WAS STUCK 4 TIMES FOR IV
== END 2020-12-04 22:44 | disposition home or self-care (01) ==
LOC: ORSCMMR 11:09 → ORD 12:00 → ORSCMMR 22:44
PROVIDERS: Surgery
PROC: 0DJD8ZZ Inspection of Lower Intestinal Tract, Via Natural or Artificial Opening Endoscopic (ICD-10-PCS; principal; 2020-12-04 12:00)
DX: Z12.11 Encounter for screening for malignant neoplasm of colon (principal); Z87.19 Personal history of other diseases of the digestive system; Z93.3 Colostomy status; E66.01 Morbid (severe) obesity due to excess calories; Z68.41 Body mass index [BMI] 40.0-44.9, adult; Z87.891 Personal history of nicotine dependence; Z79.899 Other long term (current) drug therapy
CPT/HCPCS: 84703; J2704; J7120

== ENCOUNTER 2020-12-05 05:59 | Inpatient (IN) | payer OTHER ==
[~2020-12-05] VITALS: Ht 165.1 cm; Wt 107.9 kg
--- NOTE | 2020-12-05 06:30 | NUR ---
PT AMBULATES TO SDS c STEADY GAIT. REPORTS TOOK ENSURE AT 0430 PER ORDERS, WAS GIVEN IN OFFICE. NEG PREG TEST YESTERDAY AT [facility] DAY SURGERY. IV IN PLACE IN L HAND FROM YESTERDAYS PROCEDURE, PATENT, FLUSHES s DIFFICULTY. NO JEWELRY IN PLACE.
--- NOTE | 2020-12-05 07:14 | NUR ---
GIVEN FLEETS ENEMA c RESULTS PER PT. PT TOLERATED WELL. ABLE TO AMBULATE TO AND FROM RESTROOM s DIFFICULTY.
--- NOTE | 2020-12-05 12:22 | NUR ---
EPIDURAL APPEARS INTACT SENSATION TO TOUCH AND COLD WHEN ARRIVED TO PACU TO FEET HAS NOT CHANGED 1230 DR KIM REMOVED EPIDURAL
--- NOTE | 2020-12-05 13:00 | NUR ---
PT ARRIVED TO ROOM 226 FROM PACU PT IS S/P COLOSTOMY REVERSAL PT HAS TRANVERSE AND MIDLINE CUCO C/D/I ALSO WEARING A ABD BINDER PT TO HAVE FENT CROP NUTRITION SCIENTIST STARTED EPIDURAL REMOVED IN PACU TALKED WITH DR BUCK RE FENT CROP NUTRITION SCIENTIST ORDER TO REPLACE FOR PAIN MGMT PT REPORTS CURRENT ABD PAIN 7/10 NO NAUSEA AT THIS TIME WANTING TO CALL HER DAUGHTER
--- NOTE | 2020-12-05 16:50 | NUR ---
PT BRIANA CL NO NAUSEA BOOSTED PT UP IN THE BED PER REQ PT HAVING OCC COUGHT TALKED WITH PT WITH IS/TCDB WITH SPLINTING
--- NOTE | 2020-12-05 18:47 | NUR ---
pt eating cl diet
[2020-12-06 04:58] LABS: BASOPHILS ABSOLUTE AUTO 0.01 K/mm3 (0.00-0.23); BASOPHILS PERCENT AUTO 0 % (0-2); EOSINOPHILS ABSOLUTE AUTO 0.03 K/mm3 (0.00-0.68); EOSINOPHILS PERCENT AUTO 0 % (0-6); Hematocrit 32.4 % (33.0-51.0); Hemoglobin 9.9 g/dL (11.5-16.0); IMMATURE GRAN ABSOLUTE AUTO 0.03 K/mm3 (0.00-0.10); IMMATURE GRAN PERCENT AUTO 0 % (0-1); LYMPHOCYTES ABSOLUTE AUTO 0.99 K/mm3 (0.84-5.20); LYMPHOCYTES PERCENT AUTO 14 % (21-46); MONOCYTES ABSOLUTE AUTO 0.47 K/mm3 (0.16-1.47); MONOCYTES PERCENT AUTO 7 % (4-13); Mean Corpuscular HGB 25.3 pg (26.0-34.0); Mean Corpuscular HGB Conc 30.6 g/dL (31.5-36.5); Mean Corpuscular Volume 83 fL (80-100); Mean Platelet Volume 9.8 fL (9.1-12.4); NEUTROPHILS ABSOLUTE AUTO 5.33 K/mm3 (1.96-9.15); NEUTROPHILS PERCENT AUTO 78 % (41-73); Platelet Count 116 K/mm3 (150-400); RDW Coefficient Variation 14.9 % (11.7-14.2); RDW Standard Deviation 44.2 fL (35.1-46.3); Red Blood Cell Count 3.92 M/mm3 (3.80-5.20); White Blood Cell Count 6.86 K/mm3 (4.00-11.30)
--- NOTE | 2020-12-06 05:00 | NUR ---
SHIFT SUMMARY POD#1 OSTOMY REVERSAL AAOX4. DISCOMFORT CONTROLLED WITH CNC SUPERVISOR USE. DENIES NAUSEA/EMESIS. ABD INCISION WITH CUCO X2 C/D/I. ABD MILD DISTENSION, PT REPORTS NORMAL FOR HER. HYPOACTIVE BTX4, DENIES FLATUS POST OP. FELIX SECURE/DRAINING YELLOW. PT MOVES SELF IN BED WELL, CONTINUE TO ENCOURAGE REPOSITIONING + MOVEMENT/AMBULATION TODAY TOLERATED. PT RESTED INFREQUENTLY T/O NIGHT. TOLERATING SIPS CLEARS T/O NIGHT. IVF + POST OP ABX PER ORDERS. AWAITING LAB RESULTS THIS AM. CURRENTLY PT IS RESTING IN BED WITH CALL LIGHT IN REACH.
[2020-12-06 05:25] LABS: Anion Gap 4 mmol/L (6-16); Blood Urea Nitrogen 9 mg/dL (8-24); Bun/Creatinine Ratio 14.4 (12.0-20.0); CO2, Blood 26 mmol/L (21-32); Calcium, Blood 8.3 mg/dL (8.5-10.1); Chloride, Blood 107 mmol/L (98-108); Creatinine, Blood 0.63 mg/dL (0.40-1.00); Glomerular Filtration Rate >60 (60-); Glucose, Blood 125 mg/dL (70-99); Sodium, Blood 137 mmol/L (136-145)
--- NOTE | 2020-12-06 18:41 | NUR ---
PT HAS BEEN STABLE THIS SHIFT. PT UP TO CHAIR THIS SHIFT. AMBULATES INDEP IN ROOM. FELIX DC'D, VOIDING WELL. PT BRIANA DIET. NO FLATUS YET. NAUSEA X1, ZOFRAN EFFECTIVE. SHORE WORKER MANAGING PAIN. TORADOL GIVEN X2 FOR BREAKTHROUGH PAIN. CONT IV FLUIDS. CUCO DRESSING MIDLINE, CDI. TRANSVERSE ABD DRESSING CDI. USES CALL LIGHT APPROPRIATELY NEEDED.
--- NOTE | 2020-12-06 18:50 | NUR ---
RECVD REPORT FROM PREVIOUS SHIFT RN IRMA, PT LYING IN BED AWAKE, A/O X 4, PLEASANT/COOPERATIVE, CALL LIGHT WITHIN REACH, BED RAILS UP X 2, BED IN LOWEST POSITION, DENIES N/V, [place] M[place] OPERATOR FOR PAIN WITH BUTTON WITHIN REACH.
--- NOTE | 2020-12-07 04:12 | NUR ---
shift summary: vss, no acute changes. pt remained in continuous biox r/t high risk pain management with MEDICAL BILLER/CODER. pt reports pain controlled "well" and that she is able to sleep. pt voiding and tolerating liquid diet small sips. midline/transverse incisions c/d/i, CUCO compressed and intact with no shadowing, BT hypoactive. pt remained a/o x 4, pleasant/cooperative, up in room and to bathroom with standby assist.
--- NOTE | 2020-12-07 05:10 | NUR ---
RESUMED CARE AT 0400. NO ACUTE CHANGES. PT ASLEEP. USING CALL LIGHT TO MAKE NEEDS KNOWN.
--- NOTE | 2020-12-07 15:44 | NUR ---
CUCO DRESSINGS CHANGED R/T LACK OF SEAL
--- NOTE | 2020-12-07 16:48 | NUR ---
SHIFT SUMMARY PT HAS BEEN A/O X4, IND IN ROOM. TOLERATING FULL LIQUIDS; WILL ADVANCE TO REG DIET FOR DINNER. NO N/V THIS SHIFT. PT DENIES BM OR FLATUS TODAY, HOWEVER SHE HAS HAD ACTIVE BOWEL TONES. O2 WEANED FROM 3L DOWN TO 1L; PT ONLY USING WHILE ASLEEP NOW. PAIN MANAGED WELL WITH FENTANYL CURRICULUM DEVELOPER. PLAN TO DC CURRICULUM DEVELOPER AND START PO MEDS TOMORROW. CUCO DRESSINGS CHANGED R/T LACK OF SEAL.
--- NOTE | 2020-12-08 03:28 | NUR ---
SHIFT SUMMARY A/OX4, SBA TO BATHROOM. ABD PAIN MANAGED WITH COMPENSATION SPECIALIST PUMP. MIDLINE AND L. ABD CUCO C/D/I WITH ABD BINDER IN PLACE. PLAN IS TO D/C COMPENSATION SPECIALIST AND SWITCH TO ORAL PAIN MEDS TODAY. PT REPORTS PASSING FLATUS, NO BM YET. VSS, NO ACUTE CHANGES AT THIS TIME. BED IN LOWEST POSITION WITH CALL LIGHT IN REACH. WILL CONTINUE TO MONITOR AND REPORT TO ONCOMING RN.
--- NOTE | 2020-12-08 16:41 | NUR ---
12/08/20 1641 Christal Richard VERIFICATIONS: EDIT CHART.
--- NOTE | 2020-12-08 17:14 | NUR ---
SUMMARY NO ACUTE CHANGES T/O SHIFT. PT TRANSITIONED FROM OPENSTACK CLOUD CONSULTING ARCHITECT TO PO PAIN MEDS. REPORTS PAIN TOLERABLE W/TWO PERCOCET PER ORDERS. TOLERATING DIET. INDPENDENT IN ROOM--JUST NEEDS ASSISTANCE TO CONNECT AND DISCONNECT PAS. CALL LIGHT IN REACH. PT PLEASANT AND COOPERATIVE.
--- NOTE | 2020-12-08 18:47 | NUR ---
PER CAREER GUIDANCE COUNSELOR, PVR BS 10 ML.
--- NOTE | 2020-12-08 19:16 | NUR ---
REPORT GIVEN TO ONCOMING SHIFT.
--- NOTE | 2020-12-09 05:52 | NUR ---
SUMMARY PT PASSING FLATUS ,BUT REPORTS NO BM YET.N O C/O NAUSEA.PT VERB PAIN ADEQUATELY CONTROLLED WITH PO MEDS.
--- NOTE | 2020-12-09 09:16 | NUR ---
PT PASSING FLATUS
--- NOTE | 2020-12-09 16:12 | NUR ---
ASSUMED CARE OF PT, STATES SHE JUST TOOK A "PAIN PILL" DENIES ANY NAUSEA, REPORTS TOLERATING REGULAR DIET FAIRLY WELL, CONT. TO MONITOR FOR ANY CHANGES.
--- NOTE | 2020-12-09 16:16 | NUR ---
SUMMARY NO ACUTE CHANGES T/O SHIFT. PT MEDICATED ONCE THIS AM FOR NAUSEA. REPORTS NAUSEA BETTER THIS AFTERNOON. MEDICATED PER ORDERS T/O DAY FOR ABDOMINAL PAIN. PT C/O OF SORENESS TO MOUTH AND VAGINAL ITCHING; DR BUCK ORDERED DIFLUCAN WHICH WAS ADMINISTERED. PT SHOWERED THIS AFTERNOON. NOW RESTING W/DOOR CLOSED. REPORT GIVEN TO VANGIE MULLEN.
--- NOTE | 2020-12-10 07:46 | NUR ---
POD 5 S/P COLOSTOMY REVERSAL. PT VSS T/O NIGHT, INCISIONS CDI. PAIN MGD W/1 PERCOCET AND TORADL W/REP RELIEF. PT BRIANA REG PO, REP +FLATUS, NO BM THIS SHIFT. PT INDEP IN ROOM, IS VOIDING URINE W/O DIFFICULTY. PLAN TO D/C HOME TODAY.
--- NOTE | 2020-12-10 19:38 | NUR ---
SHIFT SUMMARY PT HAS DONE EXCELLENT TODAY. PASSING GAS & HAD BM. TOLERATING DIET WELL. UP IND IN ROOM.
--- NOTE | 2020-12-11 04:34 | NUR ---
SHIFT SUMMARY POD#6 COLOSTOMY REVERSAL WITH CUCO. AAOX4. DISCOMFORT CONTROLLED WITH 1 NORCO Q4P. NO NAUSEA/EMESIS. DRESSING TO ABD, SCANT DIME SIZE DRY RED DRAINAGE, NO INCREASE THIS SHIFT. PT UP INDEPENDENT IN ROOM. GOOD PO INTAKE + OUTPUT. PT REPORTING BMs YESTARDAY + FLATUS THIS SHIFT. RESTED WELL T/O NIGHT, NADN, WITH CALL LIGHT IN REACH.
[2020-12-11] MEDS ORDERED: Percocet 5-3251 EACH PO (11:02)
--- NOTE | 2020-12-11 14:59 | NUR ---
DISCHARGE SUMMARY PT A&OX4, VSS, INDEPENDENT IN ROOM, TOLERATING PO, VOIDING WELL. DC INSTRUCTIONS PROVIDED. PT REP UNDERSTANDING THOSE INSTRUCTIONS. LEFT FLOOR VIA WC TO GO HOME WITH DAUGHTER, WITH ALL PERSONAL POSSESSIONS, INCLUDING DC PACKET AND 1 NARC SCRIPT. IV DC'D.
== END 2020-12-11 13:30 | disposition home or self-care (01) | DRG 346 ==
LOC: SURS 05:59 → PRE IP 07:30 → SURS 12:52
PROVIDERS: ADMIT Surgery
PROC: 0DSM0ZZ Reposition Descending Colon, Open Approach (ICD-10-PCS; principal; 2020-12-05 07:30)
DX: Z43.3 Encounter for attention to colostomy (principal); Z90.49 Acquired absence of other specified parts of digestive tract; Z79.899 Other long term (current) drug therapy; Z98.890 Other specified postprocedural states; Z87.891 Personal history of nicotine dependence; R73.03 Prediabetes
CPT/HCPCS: 36415; 80048; 85025; 94762; A9270; J0295; J1100; J1650; J1885; J2250; J2405; J2704; J2710; J3010; J7120; V2790